=== PATIENT | male | born 2000 | race Caucasian/White ===

== ENCOUNTER 2024-08-05 00:16 | Emergency (ER) | payer SELFPAY ==
[2024-08-05] MEDS: Diphtheria,Pertussis(Acell),Tetanus Vaccine 0.5 ML Syringe IM ONE (00:47)
[2024-08-05] MEDS: Lidocaine 1% 10 ML MDV INJECT ONE (01:20)
== END 2024-08-05 01:31 | disposition home or self-care (01) ==
LOC: JD.ED 00:16
DX: S61.012A Laceration without foreign body of left thumb without damage to nail, initial encounter (principal); W25.XXXA Contact with sharp glass, initial encounter
CPT/HCPCS: 12001; 90471; 99282-25; 99283; J3490

== ENCOUNTER 2024-09-07 18:44 | Emergency (ER) | payer SELFPAY | END 2024-09-07 20:04 | disposition home or self-care (01) | LOC: JD.ED 18:44 | DX: S61.012D Laceration without foreign body of left thumb without damage to nail, subsequent encounter (principal); Z48.02 Encounter for removal of sutures | CPT/HCPCS: 99281 ==